=== PATIENT | male | born 1995 | race Two or more races ===

== ENCOUNTER 2025-03-13 18:29 | Emergency (ER) | payer MEDICAID, SELFPAY ==
[2025-03-13 18:30] VITALS: BMI 30.1
[2025-03-13 18:49] VITALS: BP 156/83; PULSE 100; RESP 18; TEMP 37; O2SAT 99
--- NOTE | 2025-03-13 19:07 | EDNOTE_ITS ---
ED Skin Abcess FB-RME/HPI General Chief complaint: General Adult/Misc Complain Stated complaint: GROIN PAIN X5 DAYS Time Seen by Provider: 03/13/25 18:34 Arrival date/time: 03/13/25 18:29 This is a case of 39-year-old male with no medical history came into the emergency room due to painful lump On the pelvic area near left the patient genitalia for 5 days patient states that this started a pimple now the size become bigger and popped with redness swelling and discharge due to worsening of the symptoms this patient decided to sought consult here in the emergency room denies any abdominal pain denies any fever or chills Limitations: no limitations Related Data Previous Rx's ?Medication ?Instructions ?Recorded cephalexin 500 mg capsule 500 mg PO QID #40 caps 03/13 ibuprofen 800 mg tablet 800 mg PO Q8H PRN pain #20 t abs 03/13/25 mupirocin 2 % topical ointment 1 applic topical BID #2 2 grams 03/13/25 (Centany) sulfamethoxazole 800 1 tab PO Q12H #20 tabs 03/13 mg-trimethoprim 160 mg tablet (Bactrim DS) Allergies Allergy/AdvReac Type Severity Reaction Status Date / Time No Known Allergies Allergy Verified 03/13/25 18:32 Review of Systems Review of Systems Systems Reviewed: All systems reviewed, normal except as documented Constitutional Constitutional: Reports system reviewed and no additional complaints, except as documented and Reports as per HPI Cardiovascular Cardiovascular: Reports system reviewed and no additional complaints, except as documented and Reports as per HPI Respiratory Respiratory: Reports system reviewed and no additional complaints, except as documented and Reports as per HPI Gastrointestinal Gastrointestinal: Reports system reviewed and no additional complaints, except as documented and Reports as per HPI Musculoskeletal Musculoskeletal: Reports system reviewed and no additional complaints, except as documented and Reports as per HPI Neurologic Neurologic: Reports system reviewed and no additional complaints, except as documented and Reports as per HPI Past Medical History Past Medical History CARDIAC: Negative Congestive Heart Failure RESPIRATORY: Negative Chronic Obstructive Pulmonary Disease (COPD) GENITOURINARY: Negative Renal Disease ENDOCRINE: Negative Diabetes Mellitus Type 1 or Diabetes Mellitus Type 2 Social History SMOKING STATUS: Never smoker SUBSTANCE USE: does not use ED Exam General Limitations: Present no limitations General appearance: Present alert, in no apparent distress and other (Patient is awake alert oriented not in distress nontoxic looking well-hydrated well- nourished) Head Head exam: Present atraumatic, normocephalic and normal inspection Eye Eye exam: Present normal appearance, PERRL and EOMI ENT ENT exam: Present normal exam, normal oropharynx and mucous membranes moist Neck Neck exam: Present normal inspection, full ROM and trachea midline; Absent tenderness, meningismus, lymphadenopathy or thyromegaly Chest Chest inspection: Present normal inspection and symmetric chest wall rise Respiratory Respiratory exam: Present normal lung sounds bilaterally; Absent respiratory distress, wheezes, stridor, accessory muscle use or prolonged expiratory phase Cardiovascular Cardiovascular exam: Present regular rate, normal rhythm and normal heart sounds; Absent bradycardia, tachycardia, irregular rhythm, systolic murmur or diastolic murmur Abdominal Exam Abdominal exam: Present soft and normal bowel sounds; Absent distention, tenderness, guarding, rebound, rigidity, diminished bowel sounds, hyperactive bowel sounds, hypoactive bowel sounds or organomegaly Extremities Exam Extremities exam: Present normal inspection and full ROM Back Exam Back exam: Present normal inspection and full ROM Neurological Exam Neurological exam: Present alert, oriented X3, CN II-XII intact, normal gait and reflexes normal; Absent motor sensory deficit Psychiatric Psychiatric exam: Present normal affect and normal mood Skin Skin exam: Present warm, dry, intact, normal color and other (Noted a 2 to 3 cm approximately on the central pelvic area tender to touch redness mild swelling suggestive of cutaneous abscess no cellulitis no ulcer) Course Quality Measures none Orders Category Date Time Status Wound Culture and Gram Stain Stat Lab 03/13/25 19:02 Ordered Clindamycin Vial [Cleocin vial] Med 03/13/25 19:02 Once 600 mg IM X1 ONE Vital Signs Vital signs: Vital Signs Temperature 98.6 F 03/13/25 18:49 Pulse Rate 100 03/13/25 18:49 Respiratory Rate 18 03/13/25 18:49 Blood Pressure 156/83 H 03/13/25 18:49 Pulse Oximetry (%) 99 03/13/25 18:49 Oxygen Delivery Method Room Air 03/13/25 18:49 Oxygen saturation is 99% Skin / Abscess / Foreign Body MDM Narrative MDM Narrative:: This is a case of 39-year-old male with no medical history came into the emergency room due to painful lump On the pelvic area near left the patient genitalia for 5 days patient states that this started a pimple now the size become bigger and popped with redness swelling and discharge due to worsening of the symptoms this patient decided to sought consult here in the emergency room denies any abdominal pain denies any fever or chills physical examination noted a 2 to 3 cm painful lump tenderness swelling rednesssuggestive of abscess no cellulitis patient will be discharged as cutaneous abscess on the pelvic area patient was given clindamycin IM and wound culture was obtained patient will be discharged with cephalexin and Bactrim with mupirocin ointment and ibuprofen patient was advised to follow-up with PCP in 2 days for reevaluation and for any worsening symptoms or emergent concern return precaution in the ER was advised Patient was discharged with comfortable condition walking with stable gait. Patient verbalized no further complains explained diagnosis and answered patient question. Patient is comfortable with the proposed management plan including the need to follow up with his/her primary care physician and any specialist if applicable Discussed patient for any urgent condition or worsening sx, He/She needed to go to emergency room immediately or call 911. Patient acknowledge the responsibility to follow up as instructed and to monitor her/his symptoms. For any persistence of the symptoms for more than 3-5 days return precaution advised. Discussed the result of the test and was given printed discharge instruction Patient data External records reviewed:: [facility] previous records Clinical information provided by:: patient Social determinants that could affect healthcare access:: none Patient has the following chronic illnesses:: None How is presenting disease/condition affected by chronic disease/condition?: no chronic disease Evaluation data The following diagnostics were reviewed and interpreted by me:: other (specify) (None) Lab and/or radiology exams considered but not ordered:: None Interpretation Summary: None Medications / Prescriptions Medications or Prescriptions considered but not ordered:: Given Medication administrations:: Medication Administration History Clindamycin Phosphate (Clindamycin Phos Inj 150 Mg/Ml Vial 6 Ml) 600 mg IM X1 ONE Stop: 03/13/25 19:03 Given Consultations Consultation(s) initiated? (list below): No Diagnosis Skin/Abscess Differential Diagnosis: abscess of skin or subcutaneous tissue and cellulitis Most likely diagnosis given after review of the tests above:: Cutaneous abscess Admission Indicated Admission indicated?: not indicated Explain why admission is indicated or not indicated:: Not indicated Admission Request Was there a request for admission?: No Admission Attestation Admission request attestation: Not indicated Disposition Plan Disposition Plan: Discharge Discharge Attestation Discharge Attestation: The patient and all family members were given an opportunity to ask questions and understood the discharge instructions. Discharge instructions specifically effects, indications for sooner follow up or return to the emergency department, and the expected course of current diagnosis. Patient condition: Stable Discharge Plan Plan Patient Disposition: HOME (Self Care) Patient condition on transfer: Stable Prescriptions/Referrals Prescriptions/Med Rec: New mupirocin [Centany] 2 % ointment 1 applic topical BID Qty: 22 0RF sulfamethoxazole-trimethoprim [Bactrim DS] 800-160 mg tablet 1 tab PO Q12H Qty: 20 0RF cephalexin 500 mg capsule 500 mg PO QID Qty: 40 0RF ibuprofen 800 mg tablet 800 mg PO Q8H PRN (Reason: pain) Qty: 20 0RF Problem List Clinical Impression: Cutaneous abscess Patient/Caregiver Discharge Instructions Education Materials: ED Abscess Antibiotic ... Additional Instructions: Follow-up with your primary care physician in 3 days for reevaluation return to the emergency room in 2 days for reevaluation of the abscess and possible incision and drainage worsening symptoms or any emergent concerns such as redness swelling discharge from the wound pain fever chills return to the emergency room immediately or call 911 take your medication as directed finish the course of antibiotic keep the area clean and dry Print Language: Ecuadorean Stand Alone Forms: Pooja Award Info., Patient Portal Info Letter PA/SHANKAR Supervising Physician GALLITO/SHANKAR Supervising Physician: Dr. Ramirez
[2025-03-13] MEDS: CLINDAMYCIN PHOS INJ 150 MG/ML VIAL 6 ML 600 MG IM (19:18)
== END 2025-03-13 19:35 | disposition home or self-care (01) ==
LOC: SERX 19:19
PROVIDERS: Emergency Provider Emergency Medicine
DX: L02.214 Cutaneous abscess of groin (principal)
CPT/HCPCS: 87070; 87205; 96372; 99282; J0736